=== PATIENT | female | born 1950 | race African-American/Black ===

== ENCOUNTER 2016-07-02 09:16 | Outpatient (CLI) | payer MEDICARE, MEDICAID ==
[2016-07-02 10:05] LABS: Hemoglobin A1c 6.4 % (4.0-6.0)
[2016-07-02 10:34] LABS: Hemoglobin 12.2 g/dL (12.0-16.0); MDiff Complete? YES; Manual Diff?? YES; Mean Corpuscular HGB CONC 31.2 g/dL (32.0-36.0); Mean Corpuscular Hemoglobin 26.7 pg (27.0-31.0); Mean Corpuscular Volume 85.5 fL (81.0-99.0); Mean Platelet Volume 8.6 fL (7.4-10.4); Platelet Count 206 thou/uL (130-400); RBC Distribution Width 13.8 % (11.5-14.5); Red Blood Cell (RBC) Count 4.59 mill/uL (4.20-5.40); White Blood Cell (WBC) Count 5.9 thou/uL (4.8-10.8)
[2016-07-02 10:35] LABS: Anisocytosis SLIGHT = 6-15 cells (100X) (0-5/hpf); Band 2 % (5-11); Eosinophils 2 % (0-10); Lymphocytes 13 % (21-51); Monocytes 10 % (0-10); Neutrophil 69 % (42-75); PLT Morphology Comment Appears Adequate
[2016-07-02 11:05] LABS: ALT (SGPT) 13 U/L (0-55); AST (SGOT) 17 U/L (5-34); Alkaline Phosphatase 101 U/L (40-150); Anion Gap 16 mmol/L (10-20); BUN (Urea Nitrogen) 19 mg/dL (9.8-20.1); Bilirubin, Total 0.4 mg/dL (0.2-1.2); Calc. Creatinine Clearance 0 mL/min (70-130); Calcium 9.4 mg/dL (7.8-10.44); Carbon Dioxide 27 mmol/L (23-31); Chloride 102 mmol/L (98-107); Estimated GFR-MDRD 59; Globulin 3.6 g/dL (2.4-3.5); Glucose 123 mg/dL (80-115); Potassium 3.6 mmol/L (3.5-5.1); Protein, Total 7.6 g/dL (5.8-8.1); Sodium 141 mmol/L (136-145)
== END 2016-07-02 09:17 ==
LOC: MADLABBHPM 09:16
PROVIDERS: ATTEND Family Medicine
DX: E11.9 Type 2 diabetes mellitus without complications (principal)
CPT/HCPCS: 36415; 80053; 83036; 85025

== ENCOUNTER 2016-08-23 04:50 | Emergency (ER) | payer MEDICARE, MEDICAID ==
[2016-08-23 05:25] LABS: Bilirubin Negative (Negative); Blood, Urine Trace (Negative); Clarity Clear (Clear); Glucose, Urine (Dipstick) Negative (Negative); Leukocyte Negative (Negative); Nitrite Negative (Negative); Protein, Urine (Dipstick) Trace mg/dL (Neg-Trace); Urobilinogen 0.2 mg/dL (0.2-1.0); pH, Urine 5.5 (5.0-9.0)
[2016-08-23 05:28] LABS: RBC/HPF 0-3 HPF (0-3)
[2016-08-23 05:29] LABS: Bacteria/HPF Rare-Few HPF (None Seen); Squamous Epithelial 0-3 HPF (0-3); WBC/HPF None Seen HPF (0-3)
== END 2016-08-23 05:45 | disposition home or self-care (01) ==
LOC: MADERS 04:50
DX: R33.9 Retention of urine, unspecified (principal); E11.9 Type 2 diabetes mellitus without complications; E78.5 Hyperlipidemia, unspecified; E78.00 Pure hypercholesterolemia, unspecified; I10 Essential (primary) hypertension
CPT/HCPCS: 51702; 81003; 81015; 99283

== ENCOUNTER 2016-08-26 23:16 | Emergency (ER) | payer MEDICARE, MEDICAID ==
[~2016-08-26 23:16] MED LIST: Sodium Chloride 0.9% 1,000 ML BAG ONE; Sodium Chloride 0.9% 100 ML BAG ONE
[2016-08-27 00:34] LABS: ALT (SGPT) 9 U/L (0-55); AST (SGOT) 27 U/L (5-34); Albumin 3.6 g/dL (3.4-4.8); Alkaline Phosphatase 91 U/L (40-150); Anion Gap 18 mmol/L (10-20); BUN (Urea Nitrogen) 22 mg/dL (9.8-20.1); Bilirubin, Total 0.3 mg/dL (0.2-1.2); CKMB 2.1 ng/mL (0-6.6); Calc. Creatinine Clearance 0 mL/min (70-130); Calcium 9.6 mg/dL (7.8-10.44); Carbon Dioxide 27 mmol/L (23-31); Chloride 92 mmol/L (98-107); Estimated GFR-MDRD 40; Globulin 4.1 g/dL (2.4-3.5); Glucose 139 mg/dL (80-115); Lipase 7 U/L (8-78); Potassium 4.5 mmol/L (3.5-5.1); Protein, Total 7.7 g/dL (5.8-8.1); Sodium 132 mmol/L (136-145); Troponin I 0.017 ng/mL (< 0.028)
[2016-08-27 00:46] LABS: Blood, Urine Large (Negative); Glucose, Urine (Dipstick) Negative (Negative); Leukocyte Moderate (Negative); Nitrite Negative (Negative); Protein, Urine (Dipstick) 100 mg/dL (Neg-Trace)
[2016-08-27 00:47] LABS: Clarity Cloudy (Clear); Icto Negative (Negative)
[2016-08-27 00:48] LABS: Bilirubin Negative (Negative)
[2016-08-27 00:49] LABS: RBC/HPF GREATER THAN 50-TNTC HPF (0-3)
[2016-08-27 00:50] LABS: Bacteria/HPF 2+ HPF (None Seen); Other Casts/LPF 0-3 FINELY GRAN LPF (0-3 Hyaline)
[2016-08-27 00:58] LABS: Eosinophils 1 % (0-10); Hemoglobin 9.2 g/dL (12.0-16.0); Lymphocytes 17 % (21-51); MDiff Complete? YES; Mean Corpuscular HGB CONC 32.5 g/dL (32.0-36.0); Mean Corpuscular Hemoglobin 27.7 pg (27.0-31.0); Mean Corpuscular Volume 85.1 fl (81.0-99.0); Mean Platelet Volume 6.7 fL (7.4-10.4); Monocytes 6 % (0-10); Neutrophil 75 % (42-75); PLT Morphology Comment Appears Adequate; Platelet Count 385 thou/uL (130-400); Reactive Lymphocytes 1 % (0-10); Red Blood Cell (RBC) Count 3.29 mill/uL (4.20-5.40); White Blood Cell (WBC) Count 7.6 thou/uL (4.8-10.8)
[2016-08-27] MEDS ORDERED: cefTRIAXone\\ROCEPHIN 1 GM VIAL ONE (01:11)
[2016-08-27] MEDS ORDERED: Ondansetron HCl/PF 4 MG/2 ML Vial ONE (01:11)
[2016-08-27] MEDS ORDERED: Piperacillin/Tazobactam 3.375 GM VIAL ONE (02:20)
--- NOTE | 2016-08-27 08:29 | RAD ---
PORTABLE CHEST: Date: 08-27-16 Provided Clinical History: Chest pain. FINDINGS: Comparison 09-16-13. The cardiac silhouette appears enlarged. Prominence of the main pulmonary arter y segment suggests elevated pulmonary arterial pressures. Atherosclerosis is noted. Lungs are hypoin flated. No focal consolidation, pleural fluid, or pneumothorax apparent. IMPRESSION: Hypoinflated study with findings suggested elevated pulmonary arterial pressures. If there is persis tent clinical concern for an acute abnormality, follow up PA and lateral views of the chest should b e considered. POS: [facility]
--- NOTE | 2016-08-27 08:33 | RAD ---
ONE VIEW CHEST: Comparison: None. History: Pain. FINDINGS: Redemonstration of the nasogastric tube which closes upon itself, especially at the distal tip at th e level of the thoracic inlet. Repositioning is recommended. There is atherosclerosis of the aorta. Heart is enlarged. There is fullness at the AP window. Pulmonary vessels are within normal limits. C ostophrenic angles are clear. The lung volumes are diminished, likely due to poor inspiratory effort . There is no pneumothorax or osseous abnormalities. Increased opacification in the medial right lung base likely due to inadequate inspiration. IMPRESSION: Nasogastric tube inappropriately positioned. Repositioning is recommended. POS: [facility]
--- NOTE | 2016-08-27 08:59 | RAD ---
EXAM: CHEST 1 VIEW: COMPARISON: 08/27/16 at 1:30 a.m. HISTORY: Pain. FINDINGS: Portable upright chest redemonstrates a malpositioned nasogastric tube. Distal tip is still at the level of the thoracic inlet. There is no significant change when compared to the prior exam. Correlation made with an abdomen and pelvic CT performed on 08/27/16 at 4:32 a.m. no longer demonstra valarie an NG tube, suggesting its removal. IMPRESSION: As above. POS: [facility]
== END 2016-08-27 02:55 | disposition short-term general hospital (02) ==
LOC: MADERS 23:16
DX: N12 Tubulo-interstitial nephritis, not specified as acute or chronic (principal); N39.0 Urinary tract infection, site not specified; N28.9 Disorder of kidney and ureter, unspecified; E11.9 Type 2 diabetes mellitus without complications; E78.5 Hyperlipidemia, unspecified; E78.00 Pure hypercholesterolemia, unspecified; I10 Essential (primary) hypertension; E66.9 Obesity, unspecified; Z79.899 Other long term (current) drug therapy
CPT/HCPCS: 36416; 71010; 80053; 81003; 81015; 82553; 83605; 83690; 84484; 85025; 87086; 93005; 96361; 96365; 96367; 96375; 96376; J0696; J2270; J2405; J2543; J7050

== ENCOUNTER 2016-09-08 13:02 | Inpatient (IN) | payer MEDICARE, MEDICAID ==
[2016-09-08] MEDS ORDERED: Polyethylene Glycol 3350 17 GM Packet PO PRN (15:30)
[2016-09-08] MEDS ORDERED: HumaLOG 300 UNITS/3 ML VIAL SC PRN ×2 (17:14)
[2016-09-08] MEDS ORDERED: Dextrose 50% Abboject 50 ML SYRINGE SLOW IVP PRN (17:14)
[2016-09-08] MEDS ORDERED: Dextrose 5% in Water 1,000 ML IV PRN (17:14)
[2016-09-08] MEDS: Acetaminophen/Codeine 30-300mg Tablet PO PRN (19:08)
[2016-09-08] MEDS: Metoprolol Tartrate 25 MG TAB PO SCH (20:16)
[2016-09-08] MEDS: Pravastatin Sodium 20 MG TAB PO SCH (20:16)
[2016-09-09] MEDS: Acetaminophen/Codeine 30-300mg Tablet PO PRN ×3 (01:43→20:50)
--- NOTE | 2016-09-09 03:51 | HP ---
DATE OF ADMISSION: 09/08/2016 REASON FOR ADMISSION: Skilled rehabilitation in [place] swing bed. HISTORY OF PRESENT ILLNESS AND HOSPITAL COURSE: Ms. Betancourt is a 66-year-old -[place] female with history of chronic low back pain, radicular back pain. She underwent L3-L4, L4-L5 laminectomy on 08/19/[address] Rivers and was discharged on 08/21/2016. Patient's postoperative course was complicated with urinary retention requiring insertion of indwelling urinary catheter at the ER on 08/23/2016. On 08/24/2016, patient went back to the clinic for followup. At that time, patient was requesting a trial of removal of Colin catheter, thus it was removed. Within 6 hours at home, patient was unable to void. Home health reinserted the foleycatheter. Patient was also complaining at that time with constipation. She was started on MiraLax from the clinic at that time. Patient did not come back, but went to the ER on 08/26 to [facility] abdominal pain. Patient was transferred to [facility] at that time for intractable abdominal pain to rule out obstruction versus perforation. Per discharge summary an NG tube could not be placed at that time. They even tried fluoroscopy placing it with fluoroscopy, but failed. Her abdomen become more and more tender and distended per report, she was then taken to the operating room where she was found to have a complete bowel obstruction secondary to adhesions and also had a perforation. Her gut was decompressed and NG tube was able to be placed. Per report, the difficulty was because, she has had a previous Augie fundoplication. Patient's bowel was repaired. 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 She underwent a loop ileostomy and her abdomen was left open. She was given TPN and PICC line initially. Now, she is doing a lot better. This wound was reported to be granulating. She was tolerating regular diet. Ostomy is functioning well prior to transfer. Patient was transferred today to [facility] for skilled rehabilitation, post back surgery as well as for recovery from the recent bowel surgeries. When evaluated today, patient was generally weak looking, resting on the bedside chair. She was tearful when she relate her history and complications, but she is hopeful that she will be able to get out of this and be able to get back home. She reports that she is eating better, voiding freely no issues on BM per ileostomy. She reports intermittent pain from the postoperative site and somewhat gassy today. She states that she passes out gas, but very little. Overall, pain is adequately controlled with her current pain medication. She has been febrile free. No other issues reported. PAST MEDICAL HISTORY: 1. Diabetes type 2, controlled with oral hypoglycemic. 2. Hyperlipidemia. 3. Hypertension. 4. Obesity. 5. Arthritis. 6. Spondylolisthesis with foraminal disease and neurogenic claudication, status post lumbar decompressive laminectomy. PAST SURGICAL HISTORY: Cholecystectomy, hysterectomy, previous , bilateral knee replacements, hemorrhoidectomy, laminectomy. SOCIAL HISTORY: Patient denies tobacco, alcohol, or illicit drug use. FAMILY HISTORY: One sister with myocardial infarction at age 30, three brothers with myocardial infarction in their 50s that with colon cancer, mom with a stroke at the age 63. ALLERGIES: NKDA. CURRENT MEDICATIONS: Pravastatin 80 mg at bedtime, metoprolol 25 mg b.i.d., cyclobenzaprine 10 mg 3 times a day, glimepiride 4 mg at q.7, 30 days, losartan/ hydrochlorothiazide 50/12.5 mg daily, Tylenol with codeine 1 tablet q.4 hours p.r.n., alogliptin benzoate 25 mg p.o. daily, cholecalciferol 2000 units p.o. daily and then polyethylene glycol 17 grams p.o. daily p.r.n. REVIEW OF SYSTEMS: Constitutional: Reports general weakness and fatigue. No fevers, no chills or sweats. HEENT: Denies acute visual changes or hearing changes and cold symptoms. Cardiovascular: No chest pain, palpitations, dyspnea on exertion, or orthopnea. Patient reports worsening leg edema bilaterally since hospitalization. Pulmonary: Reports no cough, acute shortness of breath, wheezing, pain with breathing, sputum production. Gastrointestinal: No nausea, vomiting, rectal bleeding, black or tarry stools. Genitourinary: Voiding freely. No dysuria, hematuria, frequency, or urgency. Musculoskeletal: Reports pain mostly in the back and some on the abdominal area that was noted since postoperatively. Otherwise, no joint pains , muscle spasms. Skin: No other rashes or lesions aside from postoperative wounds. Neuro: No numbness, focal weakness, paralysis, or tingling sensation. PHYSICAL EXAMINATION: GENERAL: Patient is awake, alert, oriented x3, built, obese, comfortably resting in chair in no apparent distress. HEENT: Pupils equally reactive to light. EOMI. No sclerae. Oral mucosa is moist. NECK: Supple. No LAD, no JVD, no bruit. CHEST: Normal excursion. Clear to auscultation bilaterally. No wheezes, crackles, or rhonchi. HEART: Normal S1 and S2. ABDOMEN: Obese, nondistended, soft, positive bowel sounds in 4 quadrants. Mild appropriate generalized tenderness on direct palpation. No rebound, no guarding. Negative CVA tenderness bilaterally. Colostomy bag in place. Clean site. No leakage, no drainage noted. Colostomy bag with brownish soft stool present. EXTREMITIES: No clubbing, no cyanosis. Positive bipedal edema, nonpitting 2+ symmetrically. NEUROLOGIC: Nonfocal. DTRs 2+. Moves all extremities symmetrically with good strength and sensation. SKIN: Postoperative site on the lumbar region is intact, well coapted edges, dry. No drainage, no surrounding erythema, no edema. Incision site is covered with dried scab. Postop site on the lower abdomen is covered with clean dressings, VAC is not in place at this time, awaiting delivery of the equipment. ASSESSMENT AND PLAN: 1. Physical deconditioning. 2. Small-bowel obstruction with rupture of gut, status post loop ileostomy. 3. Postoperative fistula, enterocutaneous fistula.S/p Wound Vac placement. 4. Status post laminectomy at L3-L4 and L4-L5 for spondylolisthesis with foraminal disease and neurogenic claudication. 5. Diabetes type 2, controlled 6. Hypertension. 7 Dyslipidemia. 8. Morbid obesity. 9. Unsteady gait. Patient was admitted to [facility] swing bed for purposes of skilled rehabilitation. PT consult in order to gain modified independence with her gait and ADL skills prior to returning to the home environment. Her comorbidities include low back pain, abdominal pain, and status post ileostomy. She is weightbearing as tolerated. OT consult to gain modified independence with self care ADL skills. The patient's pain will be managed with p.r.n. narcotics as well as constipation management. We will continue to monitor the patient for any medical comorbidities that may interfere with rehab progress. We will continue all current medications per list. Gastrointestinal prophylaxis with PPI. Leg elevation all the time. Further recommendations depending on the hospital course. CODE STATUS: Patient reports FULL CODE. Estimated length of stay 2-3 weeks. MTDD
[2016-09-09] MEDS ORDERED: Glimepiride 2 MG TAB PO SCH ×2 (07:30→08:00)
[2016-09-09] MEDS: Losartan Potassium 25 MG TAB PO SCH (08:10)
[2016-09-09] MEDS: Hydrochlorothiazide 25 MG TAB PO SCH (08:11)
[2016-09-09] MEDS: Alogliptin Benzoate 25 MG TABLET PO SCH (08:11)
[2016-09-09] MEDS: Metoprolol Tartrate 25 MG TAB PO SCH ×2 (08:11→20:47)
[2016-09-09] MEDS: Glimepiride 2 MG TAB PO SCH (08:12)
[2016-09-09] MEDS ORDERED: Donepezil HCl 10 MG TAB PO SCH (08:45)
[2016-09-09 09:05] LABS: #Basophils 0.1 thou/uL (0.0-0.2); #Eosinphils 0.2 thou/uL (0.0-0.7); #Lymphocytes 1.1 thou/uL (1.20-3.40); #Monocytes 1.1 thou/uL (0.11-0.59); #Neutrophils 10.7 thou/uL (1.40-6.50); %Basophils 0.8 % (0.0-1.0); %Eosinophils 1.4 % (0.0-10.0); %Lymphocytes 8.2 % (21.0-51.0); %Monocytes 8.6 % (0.0-10.0); Hemoglobin 8.3 g/dL (12.0-16.0); Mean Corpuscular HGB CONC 32.2 g/dL (32.0-36.0); Mean Corpuscular Hemoglobin 27.2 pg (27.0-31.0); Mean Corpuscular Volume 84.6 fl (81.0-99.0); Mean Platelet Volume 6.8 fL (7.4-10.4); Platelet Count 493 thou/uL (130-400); RBC Distribution Width 15.7 % (11.5-14.5); Red Blood Cell (RBC) Count 3.05 mill/uL (4.20-5.40); White Blood Cell (WBC) Count 13.2 thou/uL (4.8-10.8)
[2016-09-09 09:28] LABS: ALT (SGPT) 31 U/L (0-55); AST (SGOT) 58 U/L (5-34); Alkaline Phosphatase 177 U/L (40-150); Anion Gap 18 mmol/L (10-20); BUN (Urea Nitrogen) 13 mg/dL (9.8-20.1); Bilirubin, Total 0.3 mg/dL (0.2-1.2); Calc. Creatinine Clearance 98 mL/min (70-130); Calcium 8.7 mg/dL (7.8-10.44); Carbon Dioxide 25 mmol/L (23-31); Chloride 102 mmol/L (98-107); Estimated GFR-MDRD 63; Globulin 4.2 g/dL (2.4-3.5); Glucose 98 mg/dL (80-115); Potassium 3.9 mmol/L (3.5-5.1); Protein, Total 7.2 g/dL (5.8-8.1); Sodium 141 mmol/L (136-145)
[2016-09-09] MEDS: Pravastatin Sodium 20 MG TAB PO SCH (20:47)
[2016-09-10] MEDS: Glimepiride 2 MG TAB PO SCH (07:21)
[2016-09-10] MEDS: Alogliptin Benzoate 25 MG TABLET PO SCH (08:54)
[2016-09-10] MEDS: Losartan Potassium 25 MG TAB PO SCH (08:57)
[2016-09-10] MEDS: Hydrochlorothiazide 25 MG TAB PO SCH (08:58)
[2016-09-10] MEDS: Metoprolol Tartrate 25 MG TAB PO SCH ×2 (08:58→20:30)
[2016-09-10] MEDS: Acetaminophen/Codeine 30-300mg Tablet PO PRN ×2 (10:00→16:19)
[2016-09-10] MEDS: Pravastatin Sodium 20 MG TAB PO SCH (20:30)
[2016-09-11] MEDS: Glimepiride 2 MG TAB PO SCH (07:27)
[2016-09-11] MEDS: Alogliptin Benzoate 25 MG TABLET PO SCH (08:31)
[2016-09-11] MEDS: Metoprolol Tartrate 25 MG TAB PO SCH ×2 (08:31→21:08)
[2016-09-11] MEDS: Losartan Potassium 25 MG TAB PO SCH (08:32)
[2016-09-11] MEDS: Hydrochlorothiazide 25 MG TAB PO SCH (08:32)
[2016-09-11] MEDS: Acetaminophen/Codeine 30-300mg Tablet PO PRN (11:09)
[2016-09-11] MEDS: Pravastatin Sodium 20 MG TAB PO SCH (21:07)
[2016-09-12] MEDS: Acetaminophen/Codeine 30-300mg Tablet PO PRN ×2 (08:54→23:52)
[2016-09-12] MEDS: Losartan Potassium 25 MG TAB PO SCH (08:55)
[2016-09-12] MEDS: Alogliptin Benzoate 25 MG TABLET PO SCH (08:55)
[2016-09-12] MEDS: Hydrochlorothiazide 25 MG TAB PO SCH (08:55)
[2016-09-12] MEDS: Glimepiride 2 MG TAB PO SCH (08:56)
[2016-09-12] MEDS: Metoprolol Tartrate 25 MG TAB PO SCH ×2 (08:56→20:27)
[2016-09-12] MEDS: Cyclobenzaprine 10 MG TAB PO PRN (18:40)
[2016-09-12] MEDS ORDERED: Mag-Al Plus 1200 MG/1200 MG/120 MG/30 ML UDCUP PO PRN (19:58)
[2016-09-12] MEDS: Pravastatin Sodium 20 MG TAB PO SCH (20:27)
[2016-09-13] MEDS: Alogliptin Benzoate 25 MG TABLET PO SCH (08:30)
[2016-09-13] MEDS: Hydrochlorothiazide 25 MG TAB PO SCH (08:30)
[2016-09-13] MEDS: Losartan Potassium 25 MG TAB PO SCH (08:30)
[2016-09-13] MEDS: Metoprolol Tartrate 25 MG TAB PO SCH ×2 (08:31→20:59)
[2016-09-13] MEDS: Glimepiride 2 MG TAB PO SCH (08:31)
[2016-09-13] MEDS: Acetaminophen/Codeine 30-300mg Tablet PO PRN ×2 (18:14→21:56)
[2016-09-13] MEDS ORDERED: Pravastatin Sodium 20 MG TAB PO SCH (20:00)
[2016-09-14] MEDS: Acetaminophen/Codeine 30-300mg Tablet PO PRN ×4 (02:42→22:14)
[2016-09-14] MEDS: Alogliptin Benzoate 25 MG TABLET PO SCH (08:23)
[2016-09-14] MEDS: Glimepiride 2 MG TAB PO SCH (08:23)
[2016-09-14] MEDS: Hydrochlorothiazide 25 MG TAB PO SCH (08:24)
[2016-09-14] MEDS: Losartan Potassium 25 MG TAB PO SCH (08:24)
[2016-09-14] MEDS: Metoprolol Tartrate 25 MG TAB PO SCH ×2 (08:24→20:28)
[2016-09-14] MEDS: Pravastatin Sodium 20 MG TAB PO SCH (20:28)
[2016-09-15] MEDS ORDERED: Sodium Chloride Irrig Solution 250 ML BOT ONE (07:28)
[2016-09-15] MEDS: Alogliptin Benzoate 25 MG TABLET PO SCH (07:56)
[2016-09-15] MEDS: Metoprolol Tartrate 25 MG TAB PO SCH ×2 (07:56→20:54)
[2016-09-15] MEDS: Glimepiride 2 MG TAB PO SCH (07:56)
[2016-09-15] MEDS: Losartan Potassium 25 MG TAB PO SCH (07:57)
[2016-09-15] MEDS: Hydrochlorothiazide 25 MG TAB PO SCH (07:57)
[2016-09-15] MEDS: Acetaminophen/Codeine 30-300mg Tablet PO PRN ×2 (07:58→13:35)
[2016-09-15] MEDS: Cyclobenzaprine 10 MG TAB PO PRN (20:53)
[2016-09-15] MEDS: Pravastatin Sodium 20 MG TAB PO SCH (20:53)
[2016-09-16] MEDS: Acetaminophen/Codeine 30-300mg Tablet PO PRN ×2 (02:01→16:36)
[2016-09-16] MEDS: Losartan Potassium 25 MG TAB PO SCH (08:55)
[2016-09-16] MEDS: Metoprolol Tartrate 25 MG TAB PO SCH ×2 (08:56→20:53)
[2016-09-16] MEDS: Hydrochlorothiazide 25 MG TAB PO SCH (08:56)
[2016-09-16] MEDS: Glimepiride 2 MG TAB PO SCH (08:56)
[2016-09-16] MEDS: Alogliptin Benzoate 25 MG TABLET PO SCH (08:57)
[2016-09-16] MEDS: Pravastatin Sodium 20 MG TAB PO SCH (20:53)
[2016-09-16] MEDS: Cyclobenzaprine 10 MG TAB PO PRN (20:54)
[2016-09-17] MEDS: Acetaminophen/Codeine 30-300mg Tablet PO PRN ×3 (00:13→20:29)
[2016-09-17] MEDS: Glimepiride 2 MG TAB PO SCH (07:32)
[2016-09-17] MEDS: Hydrochlorothiazide 25 MG TAB PO SCH (08:30)
[2016-09-17] MEDS: Losartan Potassium 25 MG TAB PO SCH (08:30)
[2016-09-17] MEDS: Metoprolol Tartrate 25 MG TAB PO SCH ×2 (08:31→20:33)
[2016-09-17] MEDS: Alogliptin Benzoate 25 MG TABLET PO SCH (08:31)
[2016-09-17] MEDS: Pravastatin Sodium 20 MG TAB PO SCH (20:25)
[2016-09-18] MEDS: Acetaminophen/Codeine 30-300mg Tablet PO PRN ×4 (01:57→21:30)
[2016-09-18] MEDS: Metoprolol Tartrate 25 MG TAB PO SCH ×2 (08:50→21:30)
[2016-09-18] MEDS: Losartan Potassium 25 MG TAB PO SCH (08:51)
[2016-09-18] MEDS: Alogliptin Benzoate 25 MG TABLET PO SCH (08:51)
[2016-09-18] MEDS: Hydrochlorothiazide 25 MG TAB PO SCH (08:51)
[2016-09-18] MEDS: Cyclobenzaprine 10 MG TAB PO PRN (10:05)
[2016-09-18] MEDS: Pravastatin Sodium 20 MG TAB PO SCH (21:28)
[2016-09-19] MEDS: Losartan Potassium 25 MG TAB PO SCH (08:44)
[2016-09-19] MEDS: Hydrochlorothiazide 25 MG TAB PO SCH (08:44)
[2016-09-19] MEDS: Acetaminophen/Codeine 30-300mg Tablet PO PRN ×2 (08:45→15:29)
[2016-09-19] MEDS: Metoprolol Tartrate 25 MG TAB PO SCH ×2 (08:45→20:49)
[2016-09-19] MEDS: Proctozone-HC 2.5% Cream 30 GM TUBE TOP SCH (08:46)
[2016-09-19] MEDS: Cyclobenzaprine 10 MG TAB PO PRN (20:48)
[2016-09-19] MEDS: Pravastatin Sodium 20 MG TAB PO SCH (20:49)
[2016-09-20] MEDS: Acetaminophen/Codeine 30-300mg Tablet PO PRN ×4 (05:03→21:37)
[2016-09-20] MEDS: Hydrochlorothiazide 25 MG TAB PO SCH (09:18)
[2016-09-20] MEDS: Losartan Potassium 25 MG TAB PO SCH (09:18)
[2016-09-20] MEDS: Metoprolol Tartrate 25 MG TAB PO SCH (09:19)
[2016-09-20] MEDS: Pravastatin Sodium 20 MG TAB PO SCH (21:41)
[2016-09-21] MEDS: Metoprolol Tartrate 25 MG TAB PO SCH ×3 (02:01→21:17)
[2016-09-21] MEDS: Losartan Potassium 25 MG TAB PO SCH (09:29)
[2016-09-21] MEDS: Hydrochlorothiazide 25 MG TAB PO SCH (09:29)
[2016-09-21] MEDS: Acetaminophen/Codeine 30-300mg Tablet PO PRN ×3 (09:33→21:23)
[2016-09-21] MEDS: Cyclobenzaprine 10 MG TAB PO PRN (16:51)
[2016-09-21] MEDS: Pravastatin Sodium 20 MG TAB PO SCH (21:19)
[2016-09-21] MEDS: Proctozone-HC 2.5% Cream 30 GM TUBE TOP SCH (21:28)
[2016-09-22] MEDS: Cyclobenzaprine 10 MG TAB PO PRN ×3 (00:48→18:07)
[2016-09-22] MEDS: Acetaminophen/Codeine 30-300mg Tablet PO PRN ×4 (09:00→21:00)
[2016-09-22] MEDS ORDERED: Acetaminophen/Codeine 30-300mg Tablet PO PRN (09:16)
[2016-09-22] MEDS: Hydrochlorothiazide 25 MG TAB PO SCH (09:17)
[2016-09-22] MEDS: Losartan Potassium 25 MG TAB PO SCH (09:18)
[2016-09-22] MEDS: Metoprolol Tartrate 25 MG TAB PO SCH ×2 (09:18→20:59)
[2016-09-22] MEDS: Proctozone-HC 2.5% Cream 30 GM TUBE TOP SCH (09:19)
[2016-09-22] MEDS: Pravastatin Sodium 20 MG TAB PO SCH (20:59)
[2016-09-23] MEDS: Acetaminophen/Codeine 30-300mg Tablet PO PRN ×4 (04:57→22:11)
[2016-09-23] MEDS: Proctozone-HC 2.5% Cream 30 GM TUBE TOP SCH (07:26)
[2016-09-23] MEDS: Hydrochlorothiazide 25 MG TAB PO SCH ×2 (09:05→11:31)
[2016-09-23] MEDS: Metoprolol Tartrate 25 MG TAB PO SCH ×3 (09:06→21:09)
[2016-09-23] MEDS: Losartan Potassium 25 MG TAB PO SCH ×2 (09:06→11:31)
[2016-09-23] MEDS: Cyclobenzaprine 10 MG TAB PO PRN (17:53)
[2016-09-23] MEDS: Lidocaine 3%/Hydrocortisone 0.5% CREAM RC SCH (21:00)
[2016-09-23] MEDS: Pravastatin Sodium 20 MG TAB PO SCH (21:09)
[2016-09-24] MEDS: Acetaminophen/Codeine 30-300mg Tablet PO PRN (04:36)
[2016-09-24] MEDS: Lidocaine 3%/Hydrocortisone 0.5% CREAM RC SCH ×2 (08:30→21:03)
[2016-09-24] MEDS: Losartan Potassium 25 MG TAB PO SCH (08:30)
[2016-09-24] MEDS: Hydrochlorothiazide 25 MG TAB PO SCH (08:31)
[2016-09-24] MEDS: Proctozone-HC 2.5% Cream 30 GM TUBE TOP SCH ×2 (08:35→08:51)
[2016-09-24] MEDS: Metoprolol Tartrate 25 MG TAB PO SCH ×2 (08:47→21:01)
[2016-09-24] MEDS: traMADol HCl 50 MG TAB PO PRN ×2 (17:11→23:54)
[2016-09-24] MEDS: Pravastatin Sodium 20 MG TAB PO SCH (21:01)
[2016-09-25] MEDS: Cyclobenzaprine 10 MG TAB PO PRN ×2 (02:29→20:35)
[2016-09-25] MEDS: Losartan Potassium 25 MG TAB PO SCH (08:10)
[2016-09-25] MEDS: Hydrochlorothiazide 25 MG TAB PO SCH (08:10)
[2016-09-25] MEDS: Metoprolol Tartrate 25 MG TAB PO SCH ×2 (08:10→20:35)
[2016-09-25] MEDS: traMADol HCl 50 MG TAB PO PRN ×2 (09:32→16:14)
[2016-09-25] MEDS: Proctozone-HC 2.5% Cream 30 GM TUBE TOP SCH (09:33)
[2016-09-25] MEDS: Lidocaine 3%/Hydrocortisone 0.5% CREAM RC SCH ×2 (09:33→20:37)
[2016-09-25] MEDS: Pravastatin Sodium 20 MG TAB PO SCH (20:35)
[2016-09-26] MEDS: traMADol HCl 50 MG TAB PO PRN (00:36)
[2016-09-26] MEDS: Losartan Potassium 25 MG TAB PO SCH (09:59)
[2016-09-26] MEDS: Metoprolol Tartrate 25 MG TAB PO SCH ×2 (09:59→20:52)
[2016-09-26] MEDS: Proctozone-HC 2.5% Cream 30 GM TUBE TOP SCH (10:00)
[2016-09-26] MEDS: Hydrochlorothiazide 25 MG TAB PO SCH (10:00)
[2016-09-26] MEDS: Lidocaine 3%/Hydrocortisone 0.5% CREAM RC SCH ×2 (10:00→20:52)
[2016-09-26] MEDS: Pravastatin Sodium 20 MG TAB PO SCH (20:51)
[2016-09-27] MEDS: traMADol HCl 50 MG TAB PO PRN ×3 (00:37→21:23)
[2016-09-27] MEDS: Hydrochlorothiazide 25 MG TAB PO SCH (08:56)
[2016-09-27] MEDS: Losartan Potassium 25 MG TAB PO SCH (08:56)
[2016-09-27] MEDS: Metoprolol Tartrate 25 MG TAB PO SCH ×2 (08:56→20:25)
[2016-09-27] MEDS: Lidocaine 3%/Hydrocortisone 0.5% CREAM RC SCH ×2 (09:00→21:25)
[2016-09-27] MEDS: Proctozone-HC 2.5% Cream 30 GM TUBE TOP SCH (09:01)
[2016-09-27] MEDS: Pravastatin Sodium 20 MG TAB PO SCH (20:25)
[2016-09-28] MEDS: traMADol HCl 50 MG TAB PO PRN ×2 (06:02→17:11)
[2016-09-28] MEDS: Hydrochlorothiazide 25 MG TAB PO SCH (08:32)
[2016-09-28] MEDS: Metoprolol Tartrate 25 MG TAB PO SCH ×2 (08:32→20:30)
[2016-09-28] MEDS: Proctozone-HC 2.5% Cream 30 GM TUBE TOP SCH (08:33)
[2016-09-28] MEDS: Lidocaine 3%/Hydrocortisone 0.5% CREAM RC SCH ×2 (08:33→20:28)
[2016-09-28] MEDS: Losartan Potassium 25 MG TAB PO SCH (08:33)
[2016-09-28] MEDS: Pravastatin Sodium 20 MG TAB PO SCH (20:29)
[2016-09-29] MEDS ORDERED: Sodium Chloride Irrig Solution 250 ML BOT ONE (07:47)
[2016-09-29] MEDS: traMADol HCl 50 MG TAB PO PRN ×2 (07:58→20:47)
[2016-09-29] MEDS: Hydrochlorothiazide 25 MG TAB PO SCH (08:00)
[2016-09-29] MEDS: Metoprolol Tartrate 25 MG TAB PO SCH ×2 (08:01→20:45)
[2016-09-29] MEDS: Losartan Potassium 25 MG TAB PO SCH (08:01)
[2016-09-29] MEDS: Lidocaine 3%/Hydrocortisone 0.5% CREAM RC SCH ×2 (08:02→20:46)
[2016-09-29] MEDS: Proctozone-HC 2.5% Cream 30 GM TUBE TOP SCH (08:02)
[2016-09-29] MEDS ORDERED: Polyethylene Glycol 3350 17 GM Packet PO PRN (09:40)
[2016-09-29] MEDS: Pravastatin Sodium 20 MG TAB PO SCH (20:44)
[2016-09-30] MEDS: traMADol HCl 50 MG TAB PO PRN ×2 (02:21→09:20)
[2016-09-30 05:25] VITALS: BMI 42.4
[2016-09-30] MEDS: Metoprolol Tartrate 25 MG TAB PO SCH ×2 (09:12→21:38)
[2016-09-30] MEDS: Hydrochlorothiazide 25 MG TAB PO SCH (09:12)
[2016-09-30] MEDS: Losartan Potassium 25 MG TAB PO SCH (09:12)
[2016-09-30] MEDS: Lidocaine 3%/Hydrocortisone 0.5% CREAM RC SCH ×2 (09:17→21:37)
[2016-09-30] MEDS: Proctozone-HC 2.5% Cream 30 GM TUBE TOP SCH (09:18)
[2016-09-30] MEDS: Pravastatin Sodium 20 MG TAB PO SCH (21:37)
[2016-10-01] MEDS: Losartan Potassium 25 MG TAB PO SCH (07:53)
[2016-10-01] MEDS: Hydrochlorothiazide 25 MG TAB PO SCH (07:54)
[2016-10-01] MEDS: Proctozone-HC 2.5% Cream 30 GM TUBE TOP SCH (07:54)
[2016-10-01] MEDS: Metoprolol Tartrate 25 MG TAB PO SCH ×2 (07:54→20:48)
[2016-10-01] MEDS: Lidocaine 3%/Hydrocortisone 0.5% CREAM RC SCH ×2 (07:55→20:49)
[2016-10-01] MEDS: traMADol HCl 50 MG TAB PO PRN ×2 (16:03→22:57)
[2016-10-01] MEDS: Pravastatin Sodium 20 MG TAB PO SCH (20:48)
[2016-10-02] MEDS: Losartan Potassium 25 MG TAB PO SCH (09:17)
[2016-10-02] MEDS: Metoprolol Tartrate 25 MG TAB PO SCH ×2 (09:18→20:47)
[2016-10-02] MEDS: Hydrochlorothiazide 25 MG TAB PO SCH (09:18)
[2016-10-02] MEDS: Lidocaine 3%/Hydrocortisone 0.5% CREAM RC SCH ×2 (10:16→20:48)
[2016-10-02] MEDS: Proctozone-HC 2.5% Cream 30 GM TUBE TOP SCH (10:16)
[2016-10-02] MEDS: Pravastatin Sodium 20 MG TAB PO SCH (20:47)
[2016-10-03] MEDS: Hydrochlorothiazide 25 MG TAB PO SCH (09:06)
[2016-10-03] MEDS: Lidocaine 3%/Hydrocortisone 0.5% CREAM RC SCH ×2 (09:07→20:55)
[2016-10-03] MEDS: Metoprolol Tartrate 25 MG TAB PO SCH ×2 (09:07→20:51)
[2016-10-03] MEDS: Losartan Potassium 25 MG TAB PO SCH (09:07)
[2016-10-03] MEDS: Proctozone-HC 2.5% Cream 30 GM TUBE TOP SCH (09:07)
[2016-10-03] MEDS: traMADol HCl 50 MG TAB PO PRN (14:15)
[2016-10-03] MEDS: Pravastatin Sodium 20 MG TAB PO SCH (20:51)
[2016-10-04] MEDS: Hydrochlorothiazide 25 MG TAB PO SCH (08:13)
[2016-10-04] MEDS: Losartan Potassium 25 MG TAB PO SCH (08:14)
[2016-10-04] MEDS: Metoprolol Tartrate 25 MG TAB PO SCH ×2 (08:14→20:51)
[2016-10-04] MEDS: Lidocaine 3%/Hydrocortisone 0.5% CREAM RC SCH ×2 (08:16→20:53)
[2016-10-04] MEDS: Proctozone-HC 2.5% Cream 30 GM TUBE TOP SCH (08:16)
[2016-10-04] MEDS: Cyclobenzaprine 10 MG TAB PO PRN (13:10)
[2016-10-04] MEDS ORDERED: traMADol HCl 50 MG TAB PO PRN (13:38)
[2016-10-04] MEDS: traMADol HCl 50 MG TAB PO PRN ×2 (14:08→20:49)
[2016-10-04] MEDS: Pravastatin Sodium 20 MG TAB PO SCH (20:50)
[2016-10-05] MEDS: Metoprolol Tartrate 25 MG TAB PO SCH ×2 (09:09→21:10)
[2016-10-05] MEDS: Hydrochlorothiazide 25 MG TAB PO SCH (09:10)
[2016-10-05] MEDS: Losartan Potassium 25 MG TAB PO SCH (09:10)
[2016-10-05] MEDS: traMADol HCl 50 MG TAB PO PRN ×2 (09:21→15:46)
[2016-10-05] MEDS: Lidocaine 3%/Hydrocortisone 0.5% CREAM RC SCH ×2 (10:30→21:00)
[2016-10-05] MEDS: Proctozone-HC 2.5% Cream 30 GM TUBE TOP SCH (10:30)
[2016-10-05] MEDS: Pravastatin Sodium 20 MG TAB PO SCH (21:10)
[2016-10-06] MEDS: Hydrochlorothiazide 25 MG TAB PO SCH (08:40)
[2016-10-06] MEDS: Losartan Potassium 25 MG TAB PO SCH (08:40)
[2016-10-06] MEDS: Metoprolol Tartrate 25 MG TAB PO SCH ×2 (08:40→20:31)
[2016-10-06] MEDS: Proctozone-HC 2.5% Cream 30 GM TUBE TOP SCH (08:41)
[2016-10-06] MEDS: Lidocaine 3%/Hydrocortisone 0.5% CREAM RC SCH ×2 (08:41→20:34)
[2016-10-06] MEDS: traMADol HCl 50 MG TAB PO PRN ×2 (13:03→20:31)
[2016-10-06] MEDS: Pravastatin Sodium 20 MG TAB PO SCH (20:31)
[2016-10-07] MEDS: Proctozone-HC 2.5% Cream 30 GM TUBE TOP SCH (10:12)
[2016-10-07] MEDS: Hydrochlorothiazide 25 MG TAB PO SCH ×2 (10:12→11:59)
[2016-10-07] MEDS: Losartan Potassium 25 MG TAB PO SCH ×2 (10:12→12:00)
[2016-10-07] MEDS: Lidocaine 3%/Hydrocortisone 0.5% CREAM RC SCH ×2 (10:12→20:50)
[2016-10-07] MEDS: Metoprolol Tartrate 25 MG TAB PO SCH ×3 (10:12→20:49)
[2016-10-07] MEDS: traMADol HCl 50 MG TAB PO PRN (17:03)
[2016-10-07] MEDS: Pravastatin Sodium 20 MG TAB PO SCH (20:49)
[2016-10-08] MEDS: Metoprolol Tartrate 25 MG TAB PO SCH ×2 (08:59→20:35)
[2016-10-08] MEDS: Hydrochlorothiazide 25 MG TAB PO SCH (09:00)
[2016-10-08] MEDS: Losartan Potassium 25 MG TAB PO SCH (09:00)
[2016-10-08] MEDS: Proctozone-HC 2.5% Cream 30 GM TUBE TOP SCH (09:01)
[2016-10-08] MEDS: Lidocaine 3%/Hydrocortisone 0.5% CREAM RC SCH ×2 (09:02→20:36)
[2016-10-08] MEDS: traMADol HCl 50 MG TAB PO PRN ×2 (13:16→20:36)
[2016-10-08] MEDS: Pravastatin Sodium 20 MG TAB PO SCH (20:34)
[2016-10-09] MEDS: traMADol HCl 50 MG TAB PO PRN (03:16)
[2016-10-09 08:58] VITALS: BP 127/65; TEMP 97.3
[2016-10-09] MEDS: Hydrochlorothiazide 25 MG TAB PO SCH (09:15)
[2016-10-09] MEDS: Metoprolol Tartrate 25 MG TAB PO SCH (09:15)
[2016-10-09] MEDS: Losartan Potassium 25 MG TAB PO SCH (09:15)
[2016-10-09] MEDS: Proctozone-HC 2.5% Cream 30 GM TUBE TOP SCH (09:16)
[2016-10-09] MEDS: Lidocaine 3%/Hydrocortisone 0.5% CREAM RC SCH (09:16)
[2016-10-09] MEDS ORDERED: Nystatin Powder 15 GM BOT TOP PRN (09:23)
[2016-10-09] MEDS ORDERED: Sodium Chloride Irrig Solution 250 ML BOT ONE (09:54)
--- NOTE | 2016-10-10 19:49 | DIS ---
DATE OF ADMISSION: 09/08/2016 DATE OF DISCHARGE: 10/09/2016 ATTENDING: Camelia Casas M.D. REASON FOR ADMISSION: Skilled rehabilitation in [facility]. ASSESSMENT AND PLAN: 1. Physical deconditioning. 2. Small bowel obstruction with rupture of gut, status post loop ileostomy. 3. Postoperative fistula, enterocutaneous. Status post wound VAC placement and removal. 4. Status post laminectomy at L3-L4 and L4-L5 for spondylolisthesis with foraminal disease and neurogenic claudication. 5. Diabetes type 2, improved. Oral hypoglyemics were discontinued due to hypoglycemic episodes. 6. Hypertension, stable. 7. Dyslipidemia. 8. Morbid obesity. 9. Unsteady gait, resolved. 10. External hemorrhoids. CONDITION ON DISCHARGE: Stable. DISPOSITION: Home. HOME MEDICATIONS: 1. Hydrocortisone 2.5 mg cream 1 g topically daily. 2. Lidocaine/hydrocortisone a.c. 3/0.5% cream 1 g RC b.i.d. p.r.n. 3. Maalox 30 mL p.o. q.4h. p.r.n. 4. Nystatin 1 g topical b.i.d. p.r.n. 5. Polyethylene glycol 1 packet daily p.r.n. 6. Acetaminophen with codeine 300 mg per 30 one tablet q.6h. p.r.n. 7. Vitamin D3 3000 units p.o. daily. 8. Losartan/hydrochlorothiazide 50/12.5 mg p.o. daily. 9. Metoprolol tartrate 25 mg p.o. b.i.d. 10. Pravastatin 80 mg p.o. at bedtime. 11. The patient's glimepiride and Januvia were discontinued during this hospitalization secondary to hypoglycemic episodes and well controlled blood sugar. DIET: 2000 kilocalorie ADA heart healthy. ACTIVITY: Ad jay. FOLLOWUP: 1. With Dr. Casas in 1 week or sooner with concerns. 2. Follow up with Dr. Hendrickson in 3 weeks or as previously recommended or scheduled. 3. Follow up with Dr. Rivers in 3-4 weeks for neurosurgical care. 4. Home health to resume services for residential, PT, OT and wound care management. 5. Wound care management. Wet-to-dry dressing, to change the dressing with 4 x 4 gauze 4 times a day and p.r.n. 6. Routine ileostomy care/education with the family and patient by the nursing staff prior to discharge. HISTORY OF THE PRESENT ILLNESS AND HOSPITAL COURSE: Ms. Betancourt is a 66-year-old -[place] Islander female with history of chronic low back pain with radiculopathy , diabetes, hypertension, dyslipidemia, and morbid obesity. Patient underwent L3-L4 and L4-L5 laminectomy on 08/19/2016 which was performed by Dr. Rivers. She was discharged on 08/21/2016 to home. Postoperatively, the patient suffered from urinary retention requiring insertion of indwelling catheter. We tried to remove the Colin catheter in the clinic the day after she went to the ER. Patient ended up reinserting the indwelling catheter due to recurrence of symptoms. She was then referred to Urology for further evaluation and management. On 08/26/2016, the patient returned back to [place] ER for severe acute onset of abdominal pain. She was subsequently transferred to [facility] at that time to rule out small bowel obstruction versus perforation. The patient subsequently underwent repair of perforated gut secondary to complete bowel obstruction and adhesions. Postoperatively, she initially did well, but started having enteric fluid coming out of the wound on postoperative day #3. 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 The patient underwent a loop ileostomy and abdomen was left open. The patient had wound VAC placement thereafter for wound care. The patient eventually did well. Her diet was advanced from n.p.o. PPN to regular diet. Her ostomy initially was functioning well. During her rehab course in [facility], there were episodes of ostomy leakage. This was attributed to malfunctioning adhesive tape. There was also complaint of intermittent moderate to severe external hemorrhoid pain noted over the course. She was treated with topical steroid and lidocaine gel thatgave her significant relief. During her rehab course, the patient has marked improvement in her overall functional status. She was walking more than 300 feet without using assistive device prior to discharge. She also had a couple of visits with Dr. Hendrickson for postoperative care while in rehab. Her wound VAC machine was eventually discontinued on 10/07/16. Overall, wound size and appearance has markedly improved. She was placed on wet-to-dry dressing for wound care prior to discharge. There was a family training/education made by the nursing staff with patient's 2 daughters prior to discharge for both wound care as well as ostomy care. Home health services were resumed for residential and continued therapy at home as well as wound care management and ostomy care. During her rehab stay, the patient's blood sugar was significantly improved. Her oral hypoglycemics were eventually discontinued due to e reported episodes of hypoglycemia that resolved with discontinuation of her oral hypoglycemic medications. Her blood sugar has been running less than 120 prior to discharge. There was no recurrence of hypoglycemic episodes post discontinuation of the medications. The patient is recommended to continue Accu-Chek monitoring at home and to keep diary and bring to the office at the time of follow up for the evaluation to determine if medical therapy will be resumed. VITAL SIGNS PRIOR TO DISCHARGE: Blood pressure 127/65, temperature 97.3, pulse 69, respirations 16, O2 sat 97% at room air. Weight 236 pounds. Height 5 feet. TIME SPENT ON THIS DISCHARGE: 40 minutes. KADEEM
== END 2016-10-09 15:05 | disposition home health service (06) | DRG 948 ==
LOC: MADMS 13:02
PROVIDERS: ADMIT Family Medicine; ATTEND Family Medicine
DX: R53.1 Weakness (principal); E11.649 Type 2 diabetes mellitus with hypoglycemia without coma; Z68.41 Body mass index [BMI] 40.0-44.9, adult; E88.09 Other disorders of plasma-protein metabolism, not elsewhere classified; D62 Acute posthemorrhagic anemia; Z93.2 Ileostomy status; L98.8 Other specified disorders of the skin and subcutaneous tissue; Z79.84 Long term (current) use of oral hypoglycemic drugs; I10 Essential (primary) hypertension; E78.5 Hyperlipidemia, unspecified; E66.01 Morbid (severe) obesity due to excess calories; M19.90 Unspecified osteoarthritis, unspecified site; R26.81 Unsteadiness on feet; M43.16 Spondylolisthesis, lumbar region; K59.00 Constipation, unspecified; Z43.2 Encounter for attention to ileostomy; K64.5 Perianal venous thrombosis
CPT/HCPCS: 36416; 80053; 84134; 85025; 97602; 36415-59; A4216; G8978-GP-CI; G8978-GP-CJ; G8978-GP-CK; G8979-GP-CI; G8980-GP-CI; J1642

== ENCOUNTER 2016-11-06 19:08 | Emergency (ER) | payer MEDICARE, MEDICAID ==
[2016-11-06] MEDS ORDERED: Ondansetron ODT 4 MG TAB ONE (20:20)
== END 2016-11-06 21:11 | disposition home or self-care (01) ==
LOC: MADERS 19:08
DX: R11.2 Nausea with vomiting, unspecified (principal); E11.9 Type 2 diabetes mellitus without complications; E78.5 Hyperlipidemia, unspecified; I10 Essential (primary) hypertension; E66.9 Obesity, unspecified; Z79.4 Long term (current) use of insulin; Z79.899 Other long term (current) drug therapy
CPT/HCPCS: 36416; 93005; Q0162

== ENCOUNTER 2016-12-04 11:01 | Outpatient (CLI) | payer MEDICARE, MEDICAID ==
[2016-12-04 11:41] LABS: #Basophils 0.1 thou/uL (0.0-0.2); #Eosinphils 0.1 thou/uL (0.0-0.7); #Lymphocytes 1.6 thou/uL (1.20-3.40); #Monocytes 0.6 thou/uL (0.11-0.59); #Neutrophils 4.6 thou/uL (1.40-6.50); %Basophils 0.8 % (0.0-1.0); %Eosinophils 1.5 % (0.0-10.0); %Lymphocytes 23.3 % (21.0-51.0); %Monocytes 8.7 % (0.0-10.0); %Neutrophils 65.6 % (42.0-75.0); Hemoglobin 9.1 g/dL (12.0-16.0); Mean Corpuscular HGB CONC 31.1 g/dL (32.0-36.0); Mean Corpuscular Hemoglobin 25.3 pg (27.0-31.0); Mean Corpuscular Volume 81.5 fl (81.0-99.0); Mean Platelet Volume 7.6 fL (7.4-10.4); Platelet Count 282 thou/uL (130-400); RBC Distribution Width 18.8 % (11.5-14.5)
[2016-12-04 11:42] LABS: PLT Morphology Comment Appears Adequate; RBC Morphology Normal
[2016-12-04 11:52] LABS: Hemoglobin A1c 5.9 % (4.0-6.0)
[2016-12-04 12:17] LABS: ALT (SGPT) 9 U/L (8-55); AST (SGOT) 11 U/L (5-34); Albumin 3.7 g/dL (3.4-4.8); Alkaline Phosphatase 111 U/L (40-150); Anion Gap 16 mmol/L (10-20); BUN (Urea Nitrogen) 28 mg/dL (9.8-20.1); Bilirubin, Total 0.3 mg/dL (0.2-1.2); Calc. Creatinine Clearance 0 mL/min (70-130); Calcium 9.9 mg/dL (7.8-10.44); Carbon Dioxide 15 mmol/L (23-31); Cardiac Risk 4.5 (Less than 4.5); Chloride 109 mmol/L (98-107); Cholesterol 168 mg/dl (< 200 Desired); Estimated GFR-MDRD 33; Globulin 4.7 g/dL (2.4-3.5); Glucose 98 mg/dL (80-115); HDL Cholesterol 37 mg/dL (>60 Neg Risk); LDL Cholesterol, Calculated 103 mg/dL; Potassium 4.7 mmol/L (3.5-5.1); Protein, Total 8.4 g/dL (6.0-8.3); Sodium 135 mmol/L (136-145); Triglycerides 140 mg/dL (Less than 150)
[2016-12-04 12:56] LABS: Free T4 (Free Thyroxine) 0.8 ng/dL (0.70-1.48); Thyroid Stimulating Hormone 1.2239 uIU/mL (0.35-4.94)
== END 2016-12-04 11:02 | disposition home or self-care (01) ==
LOC: MADLABBHPM 11:01
PROVIDERS: ATTEND Family Medicine
DX: E11.9 Type 2 diabetes mellitus without complications (principal); I10 Essential (primary) hypertension
CPT/HCPCS: 36415; 80053; 80061; 83036; 84439; 84443; 85025

== ENCOUNTER 2017-08-07 19:59 | Emergency (ER) | payer MEDICARE, MEDICAID | END 2017-08-07 20:49 | disposition home or self-care (01) | LOC: MADERS 19:59 | DX: K91.840 Postprocedural hemorrhage of a digestive system organ or structure following a digestive system procedure (principal); Z79.899 Other long term (current) drug therapy | CPT/HCPCS: 99283 ==

== ENCOUNTER 2017-08-26 12:46 | Outpatient (CLI) | payer MEDICARE, MEDICAID ==
[2017-08-26 13:01] LABS: #Basophils 0.1 thou/uL (0.0-0.2); #Eosinphils 0.2 thou/uL (0.0-0.7); #Lymphocytes 1.3 thou/uL (1.20-3.40); #Monocytes 0.7 thou/uL (0.11-0.59); #Neutrophils 4.5 thou/uL (1.40-6.50); %Basophils 0.9 % (0.0-1.0); %Eosinophils 2.9 % (0.0-10.0); %Monocytes 10.5 % (0.0-10.0); %Neutrophils 66.6 % (42.0-75.0); Hemoglobin 9.4 g/dL (12.0-16.0); Mean Corpuscular HGB CONC 30.3 g/dL (32.0-36.0); Mean Corpuscular Hemoglobin 24.8 pg (27.0-31.0); Mean Corpuscular Volume 81.7 fl (81.0-99.0); Mean Platelet Volume 8.2 fL (7.4-10.4); Platelet Count 257 thou/uL (130-400); RBC Distribution Width 17.8 % (11.5-14.5); Red Blood Cell (RBC) Count 3.81 mill/uL (4.20-5.40); White Blood Cell (WBC) Count 6.8 thou/uL (4.8-10.8)
[2017-08-26 13:40] LABS: ALT (SGPT) 13 U/L (8-55); AST (SGOT) 16 U/L (5-34); Alkaline Phosphatase 120 U/L (40-150); Anion Gap 19 mmol/L (10-20); BUN (Urea Nitrogen) 43 mg/dL (9.8-20.1); Bilirubin, Total 0.5 mg/dL (0.2-1.2); Calc. Creatinine Clearance 0 mL/min (70-130); Calcium 9.5 mg/dL (7.8-10.44); Carbon Dioxide 23 mmol/L (23-31); Chloride 100 mmol/L (98-107); Estimated GFR-MDRD 49; Globulin 4.4 g/dL (2.4-3.5); Glucose 147 mg/dL (80-115); Magnesium 2.2 mg/dL (1.6-2.6); Phosphorus 5.2 mg/dL (2.3-4.7); Potassium 4.5 mmol/L (3.5-5.1); Protein, Total 8.4 g/dL (6.0-8.3); Sodium 137 mmol/L (136-145); Triglycerides 119 mg/dL (Less than 150)
== END 2017-08-26 12:47 | disposition home or self-care (01) ==
LOC: MADLAB 12:46
PROVIDERS: ATTEND Surgery
DX: E44.0 Moderate protein-calorie malnutrition (principal); I12.9 Hypertensive chronic kidney disease with stage 1 through stage 4 chronic kidney disease, or unspecified chronic kidney disease; K63.2 Fistula of intestine
CPT/HCPCS: 36415; 80053; 83735; 84100; 84478; 85025

== ENCOUNTER 2017-09-01 15:13 | Outpatient (CLI) | payer MEDICARE, MEDICAID ==
[2017-09-01 16:26] LABS: ALT (SGPT) 24 U/L (8-55); AST (SGOT) 28 U/L (5-34); Albumin 3.4 g/dL (3.4-4.8); Alkaline Phosphatase 110 U/L (40-150); Anion Gap 20 mmol/L (10-20); BUN (Urea Nitrogen) 58 mg/dL (9.8-20.1); Bilirubin, Total 0.3 mg/dL (0.2-1.2); Calc. Creatinine Clearance 0 mL/min (70-130); Calcium 9.4 mg/dL (7.8-10.44); Carbon Dioxide 19 mmol/L (23-31); Chloride 94 mmol/L (98-107); Estimated GFR-MDRD 33; Globulin 4.4 g/dL (2.4-3.5); Magnesium 2.9 mg/dL (1.6-2.6); Protein, Total 7.8 g/dL (6.0-8.3); Sodium 126 mmol/L (136-145); Triglycerides 532 mg/dL (Less than 150)
[2017-09-01 16:50] LABS: #Basophils 0.1 thou/uL (0.0-0.2); #Eosinphils 0.1 thou/uL (0.0-0.7); #Lymphocytes 1.2 thou/uL (1.20-3.40); #Monocytes 0.5 thou/uL (0.11-0.59); #Neutrophils 1.9 thou/uL (1.40-6.50); %Basophils 1.5 % (0.0-1.0); %Eosinophils 2.6 % (0.0-10.0); %Lymphocytes 31.2 % (21.0-51.0); %Monocytes 13.7 % (0.0-10.0); %Neutrophils 50.9 % (42.0-75.0); Hemoglobin 8.9 g/dL (12.0-16.0); Mean Corpuscular HGB CONC 31.8 g/dL (32.0-36.0); Mean Corpuscular Hemoglobin 27.6 pg (27.0-31.0); Mean Corpuscular Volume 86.8 fl (81.0-99.0); Mean Platelet Volume 10.5 fL (7.4-10.4); Platelet Count 189 thou/uL (130-400); RBC Distribution Width 18.1 % (11.5-14.5); Red Blood Cell (RBC) Count 3.23 mill/uL (4.20-5.40); White Blood Cell (WBC) Count 3.7 thou/uL (4.8-10.8)
[2017-09-01 17:19] LABS: Glucose 1184 mg/dL (80-115)
== END 2017-09-01 15:14 | disposition home or self-care (01) ==
LOC: MADLAB 15:13
PROVIDERS: ATTEND Surgery
DX: Z48.815 Encounter for surgical aftercare following surgery on the digestive system (principal)
CPT/HCPCS: 80053; 83735; 84100; 84478; 85025

== ENCOUNTER 2017-09-22 13:08 | Outpatient (CLI) | payer MEDICARE, MEDICAID ==
[2017-09-22 13:41] LABS: ALT (SGPT) 15 U/L (8-55); AST (SGOT) 21 U/L (5-34); Albumin 3.9 g/dL (3.4-4.8); Alkaline Phosphatase 107 U/L (40-150); Anion Gap 16 mmol/L (10-20); BUN (Urea Nitrogen) 46 mg/dL (9.8-20.1); Bilirubin, Total 0.4 mg/dL (0.2-1.2); Calc. Creatinine Clearance 0 mL/min (70-130); Calcium 9.7 mg/dL (7.8-10.44); Carbon Dioxide 25 mmol/L (23-31); Chloride 101 mmol/L (98-107); Estimated GFR-MDRD 46; Globulin 4.7 g/dL (2.4-3.5); Glucose 105 mg/dL (80-115); Magnesium 2.2 mg/dL (1.6-2.6); Phosphorus 4.4 mg/dL (2.3-4.7); Protein, Total 8.6 g/dL (6.0-8.3); Sodium 138 mmol/L (136-145); Triglycerides 109 mg/dL (Less than 150)
[2017-09-22 14:08] LABS: #Eosinphils 0.1 thou/uL (0.0-0.7); #Lymphocytes 1.4 thou/uL (1.20-3.40); #Monocytes 0.5 thou/uL (0.11-0.59); #Neutrophils 2.9 thou/uL (1.40-6.50); %Basophils 0.8 % (0.0-1.0); %Eosinophils 2.3 % (0.0-10.0); %Lymphocytes 28.6 % (21.0-51.0); %Monocytes 10.5 % (0.0-10.0); %Neutrophils 57.9 % (42.0-75.0); Hemoglobin 9.3 g/dL (12.0-16.0); Mean Corpuscular HGB CONC 32.7 g/dL (32.0-36.0); Mean Corpuscular Hemoglobin 25.4 pg (27.0-31.0); Mean Corpuscular Volume 77.6 fl (81.0-99.0); Mean Platelet Volume 8.5 fL (7.4-10.4); Platelet Count 171 thou/uL (130-400); RBC Distribution Width 17.5 % (11.5-14.5); Red Blood Cell (RBC) Count 3.66 mill/uL (4.20-5.40)
== END 2017-09-22 13:09 | disposition home or self-care (01) ==
LOC: MADLAB 13:08
PROVIDERS: ATTEND Surgery
DX: I12.9 Hypertensive chronic kidney disease with stage 1 through stage 4 chronic kidney disease, or unspecified chronic kidney disease (principal); K63.2 Fistula of intestine; E44.0 Moderate protein-calorie malnutrition
CPT/HCPCS: 36415; 80053; 83735; 84100; 84478; 85025

== ENCOUNTER 2017-10-05 14:17 | Outpatient (CLI) | payer MEDICARE, MEDICAID ==
[2017-10-05 15:23] LABS: ALT (SGPT) 16 U/L (8-55); AST (SGOT) 22 U/L (5-34); Albumin 3.7 g/dL (3.4-4.8); Alkaline Phosphatase 113 U/L (40-150); Anion Gap 16 mmol/L (10-20); BUN (Urea Nitrogen) 52 mg/dL (9.8-20.1); Bilirubin, Total 0.2 mg/dL (0.2-1.2); Calc. Creatinine Clearance 0 mL/min (70-130); Calcium 9.7 mg/dL (7.8-10.44); Carbon Dioxide 21 mmol/L (23-31); Chloride 102 mmol/L (98-107); Estimated GFR-MDRD 32; Globulin 4.8 g/dL (2.4-3.5); Glucose 105 mg/dL (80-115); Magnesium 2.5 mg/dL (1.6-2.6); Phosphorus 4.4 mg/dL (2.3-4.7); Potassium 4.2 mmol/L (3.5-5.1); Protein, Total 8.5 g/dL (6.0-8.3); Sodium 135 mmol/L (136-145)
[2017-10-05 16:08] LABS: #Basophils 0.1 thou/uL (0.0-0.2); #Eosinphils 0.2 thou/uL (0.0-0.7); #Lymphocytes 1.3 thou/uL (1.20-3.40); #Monocytes 0.4 thou/uL (0.11-0.59); #Neutrophils 2.2 thou/uL (1.40-6.50); %Basophils 1.2 % (0.0-1.0); %Eosinophils 4.9 % (0.0-10.0); %Lymphocytes 31.4 % (21.0-51.0); %Monocytes 9.2 % (0.0-10.0); %Neutrophils 53.2 % (42.0-75.0); Anisocytosis SLIGHT = 6-15 cells (100X) (0-5/hpf); Hemoglobin 8.9 g/dL (12.0-16.0); MDiff Complete? YES; Mean Corpuscular HGB CONC 32.2 g/dL (32.0-36.0); Mean Corpuscular Volume 77.7 fl (81.0-99.0); Mean Platelet Volume 7.4 fL (7.4-10.4); Microcytosis SLIGHT = 6-15 cells (100X) (0-5/hpf); Platelet Count 235 thou/uL (130-400); Polychromasia SLIGHT = 2-3 cells (100X) (0-2/hpf); RBC Distribution Width 17.1 % (11.5-14.5); Red Blood Cell (RBC) Count 3.57 mill/uL (4.20-5.40); White Blood Cell (WBC) Count 4.1 thou/uL (4.8-10.8)
== END 2017-10-05 14:18 | disposition home or self-care (01) ==
LOC: MADLAB 14:17
PROVIDERS: ATTEND Surgery
DX: Z48.815 Encounter for surgical aftercare following surgery on the digestive system (principal); I12.9 Hypertensive chronic kidney disease with stage 1 through stage 4 chronic kidney disease, or unspecified chronic kidney disease; N18.2 Chronic kidney disease, stage 2 (mild)
CPT/HCPCS: 36415; 80053; 83735; 84100; 85025

== ENCOUNTER 2017-10-09 08:01 | Outpatient (CLI) | payer MEDICARE, MEDICAID ==
[2017-10-09] MEDS ORDERED: Iopamidol 370 76% 100 ML VIAL ONE (08:58)
--- NOTE | 2017-10-09 11:23 | CT ---
CT ABDOMEN AND PELVIS WITH ORAL AND IV CONTRAST: Date: 10/09/17 HISTORY: Enterocutaneous fistula. FINDINGS: Comparison made with exam dated 08/17/17. The lung bases are clear. The liver, spleen, pancreas, adrenal glands, and kidneys are normal. The pa tient is post cholecystectomy. No free air or free fluid is seen in the abdomen or pelvis. No lymphad enopathy is identified. Sigmoid diverticulosis and postop changes in the lower lumbar spine are prese nt. The inflammatory process and soft tissue density in the right lower quadrant is again seen and appear s smaller, measuring about 3.0 cm, compared to 4.0 cm on the previous study. The tiny foci of air wit hin this density have resolved in the interim. Contrast seen in the fistulous tract from the anterior abdominal wall (umbilicus) and the small bowel loops from the previous exam is not seen on the curre nt study. Soft tissue density is again noted in the region of the previously seen enterocutaneous fis fernandez. IMPRESSION: Interval reduction in size of the soft tissue density in the right lower quadrant since the exam of 0 08/17/17. The previously noted contrast in the enterocutaneous fistula is not seen on the current stud y. POS: [facility]
== END 2017-10-09 08:02 | disposition home or self-care (01) ==
LOC: MADRAD 08:01
PROVIDERS: ATTEND Surgery
DX: K63.2 Fistula of intestine (principal)
CPT/HCPCS: 74177

== ENCOUNTER 2017-10-21 13:24 | Outpatient (CLI) | payer MEDICARE, MEDICAID ==
[2017-10-21 14:23] LABS: ALT (SGPT) 31 U/L (8-55); AST (SGOT) 31 U/L (5-34); Albumin 3.7 g/dL (3.4-4.8); Alkaline Phosphatase 126 U/L (40-150); Anion Gap 16 mmol/L (10-20); BUN (Urea Nitrogen) 68 mg/dL (9.8-20.1); Bilirubin, Total 0.4 mg/dL (0.2-1.2); Calc. Creatinine Clearance 0 mL/min (70-130); Calcium 9.4 mg/dL (7.8-10.44); Carbon Dioxide 25 mmol/L (23-31); Chloride 101 mmol/L (98-107); Estimated GFR-MDRD 41; Glucose 118 mg/dL (80-115); Magnesium 2.4 mg/dL (1.6-2.6); Phosphorus 4.3 mg/dL (2.3-4.7); Potassium 4.6 mmol/L (3.5-5.1); Protein, Total 7.7 g/dL (6.0-8.3); Sodium 137 mmol/L (136-145); Triglycerides 79 mg/dL (Less than 150)
[2017-10-22 00:29] LABS: CRP (Inflammatory) 3.68 mg/dL (= or < 0.5)
== END 2017-10-21 13:25 | disposition home or self-care (01) ==
LOC: MADLAB 13:24
PROVIDERS: ATTEND Surgery
DX: K63.2 Fistula of intestine (principal); K44.0 Diaphragmatic hernia with obstruction, without gangrene
CPT/HCPCS: 36415; 80053; 83735; 84100; 84478; 86140

== ENCOUNTER 2017-10-22 10:13 | Outpatient (CLI) | payer MEDICARE, MEDICAID ==
[2017-10-22 11:27] LABS: Anisocytosis SLIGHT = 6-15 cells (100X) (0-5/hpf); Eosinophils 3 % (0-10); Hemoglobin 8.4 g/dL (12.0-16.0); Hypochromia SLIGHT = 6-15 cells (100X) (0-5/hpf); Lymphocytes 16 % (21-51); MDiff Complete? YES; Mean Corpuscular HGB CONC 33.3 g/dL (32.0-36.0); Mean Corpuscular Hemoglobin 25.4 pg (27.0-31.0); Mean Corpuscular Volume 76.3 fl (81.0-99.0); Mean Platelet Volume 7.5 fL (7.4-10.4); Microcytosis SLIGHT = 6-15 cells (100X) (0-5/hpf); Monocytes 4 % (0-10); Neutrophil 77 % (42-75); Platelet Count 182 thou/uL (130-400); RBC Distribution Width 16.5 % (11.5-14.5); Target Cells SLIGHT = 2-5 cells (100X) (0-1/hpf); Tear Drops SLIGHT = 2-5 cells (100X) (0-1/hpf); White Blood Cell (WBC) Count 7.9 thou/uL (4.8-10.8)
== END 2017-10-22 10:14 | disposition home or self-care (01) ==
LOC: MADLAB 10:13
PROVIDERS: ATTEND Surgery
DX: E44.0 Moderate protein-calorie malnutrition (principal); K63.4 Enteroptosis
CPT/HCPCS: 85025

== ENCOUNTER 2017-10-27 13:31 | Outpatient (CLI) | payer MEDICARE, MEDICAID ==
[2017-10-27 14:01] LABS: #Basophils 0.1 thou/uL (0.0-0.2); #Eosinphils 0.2 thou/uL (0.0-0.7); #Monocytes 0.3 thou/uL (0.11-0.59); #Neutrophils 4.5 thou/uL (1.40-6.50); %Basophils 0.8 % (0.0-1.0); %Eosinophils 2.5 % (0.0-10.0); %Lymphocytes 16.8 % (21.0-51.0); %Monocytes 4.9 % (0.0-10.0); Anisocytosis MODERATE=16-30 cells (100X) (0-5/hpf); Hemoglobin 8.3 g/dL (12.0-16.0); Hypochromia MODERATE=16-30 cells (100X) (0-5/hpf); MDiff Complete? YES; Mean Corpuscular HGB CONC 31.3 g/dL (32.0-36.0); Mean Corpuscular Hemoglobin 23.9 pg (27.0-31.0); Mean Corpuscular Volume 76.5 fl (81.0-99.0); Mean Platelet Volume 7.1 fL (7.4-10.4); Microcytosis MODERATE=15-30 cells (100X) (0-5/hpf); PLT Morphology Comment Appears Adequate; Platelet Count 216 thou/uL (130-400); RBC Distribution Width 16.4 % (11.5-14.5); Red Blood Cell (RBC) Count 3.46 mill/uL (4.20-5.40)
[2017-10-27 14:36] LABS: ALT (SGPT) 35 U/L (8-55); AST (SGOT) 31 U/L (5-34); Albumin 3.7 g/dL (3.4-4.8); Alkaline Phosphatase 167 U/L (40-150); Anion Gap 16 mmol/L (10-20); BUN (Urea Nitrogen) 51 mg/dL (9.8-20.1); Bilirubin, Total 0.4 mg/dL (0.2-1.2); Calc. Creatinine Clearance 0 mL/min (70-130); Calcium 9.1 mg/dL (7.8-10.44); Carbon Dioxide 26 mmol/L (23-31); Chloride 98 mmol/L (98-107); Estimated GFR-MDRD 40; Globulin 4.3 g/dL (2.4-3.5); Glucose 164 mg/dL (80-115); Magnesium 2.2 mg/dL (1.6-2.6); Phosphorus 4.2 mg/dL (2.3-4.7); Potassium 4.3 mmol/L (3.5-5.1); Sodium 136 mmol/L (136-145); Triglycerides 86 mg/dL (Less than 150)
== END 2017-10-27 13:32 | disposition home or self-care (01) ==
LOC: MADLAB 13:31
PROVIDERS: ATTEND Surgery
DX: E44.0 Moderate protein-calorie malnutrition (principal)
CPT/HCPCS: 36415; 80053; 83735; 84100; 84478; 85025

== ENCOUNTER 2017-11-16 11:38 | Outpatient (CLI) | payer MEDICARE, MEDICAID ==
[2017-11-16 12:21] LABS: #Eosinphils 0.1 thou/uL (0.0-0.7); #Lymphocytes 1.1 thou/uL (1.20-3.40); #Monocytes 0.6 thou/uL (0.11-0.59); #Neutrophils 5.5 thou/uL (1.40-6.50); %Basophils 0.7 % (0.0-1.0); %Eosinophils 1.2 % (0.0-10.0); %Lymphocytes 15.3 % (21.0-51.0); %Monocytes 7.7 % (0.0-10.0); %Neutrophils 75.2 % (42.0-75.0); Anisocytosis SLIGHT = 6-15 cells (100X) (0-5/hpf); Elliptocytes SLIGHT = 2-5 cells (100X) (0-1/hpf); Hemoglobin 7.9 g/dL (12.0-16.0); Hypochromia SLIGHT = 6-15 cells (100X) (0-5/hpf); MDiff Complete? YES; Mean Corpuscular HGB CONC 31.1 g/dL (32.0-36.0); Mean Corpuscular Hemoglobin 23.5 pg (27.0-31.0); Mean Corpuscular Volume 75.4 fl (81.0-99.0); Mean Platelet Volume 6.7 fL (7.4-10.4); Microcytosis SLIGHT = 6-15 cells (100X) (0-5/hpf); Platelet Count 276 thou/uL (130-400); Poikilocytosis SLIGHT = 6-15 cells (100X) (0-5/hpf); RBC Distribution Width 15.5 % (11.5-14.5); Red Blood Cell (RBC) Count 3.37 mill/uL (4.20-5.40); White Blood Cell (WBC) Count 7.3 thou/uL (4.8-10.8)
[2017-11-16 12:22] LABS: ALT (SGPT) 51 U/L (8-55); AST (SGOT) 35 U/L (5-34); Albumin 3.4 g/dL (3.4-4.8); Alkaline Phosphatase 261 U/L (40-150); Anion Gap 18 mmol/L (10-20); BUN (Urea Nitrogen) 55 mg/dL (9.8-20.1); Bilirubin, Total 0.4 mg/dL (0.2-1.2); Calc. Creatinine Clearance 0 mL/min (70-130); Calcium 8.9 mg/dL (7.8-10.44); Carbon Dioxide 24 mmol/L (23-31); Chloride 98 mmol/L (98-107); Estimated GFR-MDRD 40; Globulin 4.6 g/dL (2.4-3.5); Glucose 168 mg/dL (80-115); Magnesium 2.2 mg/dL (1.6-2.6); Phosphorus 4.2 mg/dL (2.3-4.7); Potassium 4.6 mmol/L (3.5-5.1); Sodium 135 mmol/L (136-145); Triglycerides 93 mg/dL (Less than 150)
== END 2017-11-16 11:39 | disposition home or self-care (01) ==
LOC: MADLAB 11:38
PROVIDERS: ATTEND Surgery
DX: K63.2 Fistula of intestine (principal); E44.0 Moderate protein-calorie malnutrition
CPT/HCPCS: 80053; 83735; 84100; 84478; 85025

== ENCOUNTER 2017-11-30 17:27 | Outpatient (CLI) | payer MEDICARE, MEDICAID ==
[2017-11-30 17:52] LABS: #Basophils 0.1 thou/uL (0.0-0.2); #Eosinphils 0.1 thou/uL (0.0-0.7); #Lymphocytes 1.3 thou/uL (1.20-3.40); #Monocytes 0.9 thou/uL (0.11-0.59); #Neutrophils 6.1 thou/uL (1.40-6.50); %Basophils 0.7 % (0.0-1.0); %Lymphocytes 15.9 % (21.0-51.0); %Monocytes 10.5 % (0.0-10.0); %Neutrophils 71.9 % (42.0-75.0); Hemoglobin 7.3 g/dL (12.0-16.0); Mean Corpuscular HGB CONC 31.4 g/dL (32.0-36.0); Mean Corpuscular Hemoglobin 23.1 pg (27.0-31.0); Mean Corpuscular Volume 73.5 fL (78.0-98.0); Mean Platelet Volume 7.7 fL (7.4-10.4); Platelet Count 240 thou/uL (130-400); RBC Distribution Width 16.3 % (11.5-14.5); Red Blood Cell (RBC) Count 3.15 mill/uL (4.20-5.40); White Blood Cell (WBC) Count 8.4 thou/uL (4.8-10.8)
[2017-11-30 17:54] LABS: ALT (SGPT) 94 U/L (8-55); AST (SGOT) 62 U/L (5-34); Albumin 3.4 g/dL (3.4-4.8); Alkaline Phosphatase 295 U/L (40-150); Anion Gap 18 mmol/L (10-20); BUN (Urea Nitrogen) 62 mg/dL (9.8-20.1); Bilirubin, Total 0.5 mg/dL (0.2-1.2); Calc. Creatinine Clearance 0 mL/min (70-130); Calcium 8.7 mg/dL (7.8-10.44); Carbon Dioxide 25 mmol/L (23-31); Chloride 97 mmol/L (98-107); Estimated GFR-MDRD 38; Globulin 4.6 g/dL (2.4-3.5); Glucose 139 mg/dL (80-115); Magnesium 2.3 mg/dL (1.6-2.6); Phosphorus 4.4 mg/dL (2.3-4.7); Potassium 4.5 mmol/L (3.5-5.1); Sodium 135 mmol/L (136-145); Triglycerides 121 mg/dL (Less than 150)
== END 2017-11-30 17:28 | disposition home or self-care (01) ==
LOC: MADLAB 17:27
PROVIDERS: ATTEND Family Medicine
DX: K63.2 Fistula of intestine (principal); E44.0 Moderate protein-calorie malnutrition
CPT/HCPCS: 80053; 83735; 84100; 84478; 85025

== ENCOUNTER 2017-12-21 07:21 | Outpatient (CLI) | payer MEDICARE, MEDICAID ==
[2017-12-21 08:46] LABS: Hemoglobin 8.6 g/dL (12.0-16.0); Mean Corpuscular HGB CONC 30.5 g/dL (32.0-36.0); Mean Corpuscular Hemoglobin 23.5 pg (27.0-31.0); Mean Corpuscular Volume 77.1 fL (78.0-98.0); Mean Platelet Volume 7.7 fL (7.4-10.4); Platelet Count 253 thou/uL (130-400); RBC Distribution Width 17.3 % (11.5-14.5); Red Blood Cell (RBC) Count 3.65 mill/uL (4.20-5.40); White Blood Cell (WBC) Count 4.2 thou/uL (4.8-10.8)
[2017-12-21 09:06] LABS: ALT (SGPT) 12 U/L (8-55); AST (SGOT) 14 U/L (5-34); Albumin 3.5 g/dL (3.4-4.8); Alkaline Phosphatase 124 U/L (40-150); Anion Gap 16 mmol/L (10-20); BUN (Urea Nitrogen) 24 mg/dL (9.8-20.1); Bilirubin, Total 0.5 mg/dL (0.2-1.2); Calc. Creatinine Clearance 0 mL/min (70-130); Calcium 9.4 mg/dL (7.8-10.44); Carbon Dioxide 23 mmol/L (23-31); Chloride 104 mmol/L (98-107); Estimated GFR-MDRD 48; Globulin 4.9 g/dL (2.4-3.5); Glucose 112 mg/dL (80-115); Potassium 3.8 mmol/L (3.5-5.1); Protein, Total 8.4 g/dL (6.0-8.3); Sodium 139 mmol/L (136-145)
[2017-12-21 10:26] LABS: Lymphocytes 34 % (21-51); MDiff Complete? YES; Manual Diff?? YES; Neutrophil 53 % (42-75)
[2017-12-21 10:27] LABS: Anisocytosis SLIGHT = 6-15 cells (100X) (0-5/hpf); Monocytes 13 % (0-10); PLT Morphology Comment Appears Adequate
[2017-12-21 17:36] LABS: Iron 20 ug/dL (50-170)
== END 2017-12-21 07:22 | disposition home or self-care (01) ==
LOC: MADLABBHPM 07:21
PROVIDERS: ATTEND Family Medicine
DX: E11.9 Type 2 diabetes mellitus without complications (principal); D50.0 Iron deficiency anemia secondary to blood loss (chronic); I10 Essential (primary) hypertension
CPT/HCPCS: 36415; 80053; 82728; 83036; 83540; 85025

== ENCOUNTER 2018-03-19 08:20 | Outpatient (CLI) | payer MEDICARE, MEDICAID ==
[2018-03-20 12:08] LABS: Hemoglobin 9.9 g/dL (12.0-16.0); Mean Corpuscular Hemoglobin 22.8 pg (27.0-31.0); Platelet Count 309 thou/uL (130-400); Red Blood Cell (RBC) Count 4.34 mill/uL (4.20-5.40); White Blood Cell (WBC) Count 5.8 thou/uL (4.8-10.8)
[2018-03-20 12:09] LABS: #Basophils 0.1 thou/uL (0.0-0.2); #Eosinphils 0.2 thou/uL (0.0-0.7); #Lymphocytes 1.6 thou/uL (1.20-3.40); #Monocytes 0.6 thou/uL (0.11-0.59); #Neutrophils 3.4 thou/uL (1.40-6.50); %Basophils 1.5 % (0.0-1.0); %Eosinophils 2.7 % (0.0-10.0); %Lymphocytes 28.2 % (21.0-51.0); %Monocytes 9.5 % (0.0-10.0); %Neutrophils 58.1 % (42.0-75.0); Manual Diff?? NO
[2018-03-20 12:20] LABS: Anion Gap 15 mmol/L (10-20); BUN (Urea Nitrogen) 23 mg/dL (9.8-20.1); Calc. Creatinine Clearance 0 mL/min (70-130); Carbon Dioxide 26 mmol/L (23-31); Chloride 101 mmol/L (98-107); Estimated GFR-MDRD 47; Potassium 3.9 mmol/L (3.5-5.1); Sodium 138 mmol/L (136-145)
[2018-03-20 12:21] LABS: Bilirubin, Total 0.4 mg/dL (0.2-1.2); Calcium 9.5 mg/dL (7.8-10.44); Globulin 5.2 g/dL (2.4-3.5); Glucose 107 mg/dL (80-115); Protein, Total 9.2 g/dL (5.8-8.1)
[2018-03-20 12:22] LABS: ALT (SGPT) 8 U/L (8-55); AST (SGOT) 12 U/L (5-34); Alkaline Phosphatase 136 U/L (40-150); Cholesterol 143 mg/dL (< 200 Desired)
[2018-03-20 12:23] LABS: Cardiac Risk 3.3 (Less than 4.5); HDL Cholesterol 44 mg/dL (>60 Neg Risk); LDL Cholesterol, Calculated 85 mg/dL; Triglycerides 72 mg/dL (Less than 150)
[2018-03-21 15:28] LABS: Hemoglobin A1c 6.2 % (4.0-6.0)
[2018-03-21 16:06] LABS: Iron 32 ug/dL (50-170)
== END 2018-03-19 08:21 | disposition home or self-care (01) ==
LOC: MADLAB 08:20
PROVIDERS: ATTEND Family Medicine
DX: E11.9 Type 2 diabetes mellitus without complications (principal); E78.2 Mixed hyperlipidemia; D50.0 Iron deficiency anemia secondary to blood loss (chronic)
CPT/HCPCS: 36415; 80053; 80061; 82728; 83036; 83540; 85025

== ENCOUNTER 2019-01-06 11:20 | Outpatient (CLI) | payer MEDICARE, MEDICAID | END 2019-01-06 11:21 | disposition home or self-care (01) | LOC: MADEKG 11:20 | PROVIDERS: ATTEND Family Medicine | DX: R00.1 Bradycardia, unspecified (principal) | CPT/HCPCS: 93005; 93010 ==

== ENCOUNTER 2019-02-01 07:41 | Outpatient (CLI) | payer MEDICARE, MEDICAID ==
[2019-02-01] MEDS ORDERED: Iopamidol 370 76% 100 ML VIAL ONE (09:29)
--- NOTE | 2019-02-01 11:13 | CT ---
EXAM: CT ABDOMEN AND PELVIS HISTORY: Right lower quadrant pain. 4 days of swelling. Colostomy. COMPARISON: 10/09/2017 Procedure: Multiple contiguous axial images were obtained and a CT of the abdomen and pelvis with IV contrast. C oronal reformats were performed. FINDINGS: Lower Chest: within normal limits. Vessels: Normal caliber aorta Heart: Normal heart size. Calcification of the coronary arteries, aortic valve and mitral annulus Abdomen: Portal vein:Patent Gallbladder: Surgically absent. Liver: within normal limits. Pancreas: within normal limits. Spleen: within normal limits. Adrenals: within normal limits. Kidneys: Symmetric enhancement. No obstructive uropathy Peritoneum: No ascites or free air, no fluid collection. Bowel: No evidence of bowel obstruction. Ileocecal junction is unremarkable. Proximal appendix is sli ghtly prominent but there is evidence of air attenuation. No obvious periappendiceal inflammatory change. Mesentery and Retroperitoneum: No enlarged mesenteric or retroperitoneal lymph nodes. Abdominal Wall: Ventral abdominal wall demonstrates postsurgical change. Anterior right lateral wall, there is a spigelian hernia. There is a segment of right hemicolon extending through the defect. There is a fluid collection with peripheral thickening and fat stranding measuring 3.5 x 3.4 cm. Aarti iated colon appears to be adjacent to this collection and the possibility that this collection communicates with the adjacent colon cannot be entirely excluded. Induration of the adjacent subcutan eous fat. Pelvis: Reproductive Organs: Uterus is surgically absent. Pelvis: within normal limits. Bladder: within normal limits. Bones: Extensive fusion hardware of the lumbar spine. There is spondylolisthesis. IMPRESSION: 1. Right-sided spigelian hernia containing mesenteric fat and segment of right hemicolon. 2. Fluid attenuation with wall thickening and adjacent fat stranding, worrisome for an infected flui d collection until proven otherwise. Questionable continuity of this collection with the adjacent colon. 3. Results were conveyed via [employer] to Dr. Chas Hendrickson, 02/01/2019 at 11:09 AM 4. Code CR Transcribed Date/Time: 02/01/2019 12:58 PM
== END 2019-02-01 07:42 | disposition home or self-care (01) ==
LOC: MADCT 07:41
PROVIDERS: ATTEND Surgery
DX: R10.31 Right lower quadrant pain (principal); K43.9 Ventral hernia without obstruction or gangrene
CPT/HCPCS: 36415; 74177; 82565; Q9967

== ENCOUNTER 2025-05-09 07:51 | Outpatient (CLI) | payer MEDICARE, MEDICAID ==
[2025-05-09 08:35] LABS: ALT (SGPT) 9 U/L (Less than 34); AST (SGOT) 20 U/L (11-34); Albumin 3.5 g/dL (3.1-4.5); Alkaline Phosphatase 79 U/L (40-110); Anion Gap 17 mmol/L (10-20); BUN (Urea Nitrogen) 40 mg/dL (9.8-20.1); Bilirubin, Total 0.6 mg/dL (0.3-1.2); Calc. Creatinine Clearance 0 mL/min (70-130); Calcium 9.0 mg/dL (7.8-10.44); Carbon Dioxide 23 mmol/L (23-31); Cardiac Risk 2.7 (Less than 4.5); Chloride 106 mmol/L (98-107); Cholesterol 161 mg/dl (< 200 Desired); Globulin 4.1 g/dL (2.4-3.5); Glucose 112 mg/dL (83-110); HDL Cholesterol 60 mg/dL (>60 Neg Risk); LDL Cholesterol, Calculated 85 mg/dL; Potassium 4.0 mmol/L (3.5-5.1); Sodium 142 mmol/L (136-145); Triglycerides 79 mg/dL (Less than 150)
== END 2025-05-09 07:52 | disposition home or self-care (01) ==
LOC: MADLAB 07:51
PROVIDERS: ATTEND Family Medicine
DX: E11.9 Type 2 diabetes mellitus without complications (principal); E78.2 Mixed hyperlipidemia
CPT/HCPCS: 36415; 80053; 80061; 83036